=== PATIENT | female | born 1965 ===

== ENCOUNTER 2021-10-26 13:53 | Emergency (ER) | payer OTHER ==
--- OUTSIDE RECORDS SUMMARY | 2021-10-26 13:58 | XMS REPORT | Continuity of Care Document ---
:1965 Author Organization [facility] t Address [address] [place] [address] [address] [place] [address] Care Team Providers Name Role Phone Shawnee FLORES Primary Care Physician Unavailable SANDRA, Shawnee Attending Clinician Unavailable Cynthia SYKES Attending Clinician Unavailable Cynthia COLBERT Attending Clinician Unavailable Femi Gonzales PT Attending Clinician Unavailable Cynthia Colbert MD Attending Clinician MAR BEARDEN Attending Clinician Unavailable MAR BEARDEN Attending Clinician Unavailable ANDRIA Attending Clinician Unavailable Andria LOONEY Attending Clinician KINJAL Attending Clinician Unavailable Shawnee Flores MD Attending Clinician Radiology Attending Clinician Unavailable Pob, Lab Main Attending Clinician Unavailable Doctor Unassigned, Name Attending Clinician Unavailable Mar Bearden MD Attending Clinician KINJAL Admitting Clinician Unavailable Payers Payer Name Policy Type Policy Number Effective Date Expiration Date Susan HERNANDEZ [id number] 2021 PLUS 00:00:00 CLASSIC/VALUE MED[place] OF [place] [id number] 2015 00:00:00 MEDICARE PART A [id number] 1990 2021 \T\ B 00:00:00 00:00:00 [place] [id number] 1990 [employer] 00:00:00 [place] [id number] [place] Problems Condition Condition Condition Status Onset Resolution Last Treating Co mments Source Name Details Category Date Date Treatment Clinician Date Medicare Medicare Disease Active Unive rs annual annual 1-15 ity of wellness wellness 00:00: [place] visit, visit, 00 Medical subsequent subsequent Br anch Female Female Disease Active Univers stress stress 1-14 ity of incontinen [place] Tiredness Tiredness Disease Active 2019-09 Uni vers 1-13 ity of 00:00: [place] [facility] Insomnia, Insomnia, Disease Active 2019-09 Uni vers unspecifie unspecifie 1-13 it y of d type d type 00:00: [place] [facility] Chronic Chronic Disease Active 2019-09 Univers arthritis arthritis 0-13 ity of 00:00: [place] [facility] Menopausal Menopausal Disease Active 2019-09 U nivers syndrome syndrome 0-13 ity of 00:00: [place] [facility] Cerebral Cerebral Disease Active Unive rs palsy palsy 5-19 ity of 00:00: [place] [facility] Malaise Malaise Disease Active Univers and and 5-19 ity of fatigue fatigue 00:00: [place] [facility] Mixed Mixed Disease Active Univers anxiety anxiety 5-19 ity of and and 00:00: [place] depressive depressive 00 Me dical disorder disorder Branch Bipolar Bipolar Disease Active Univers disorder disorder 2-23 ity of 00:00: Medical Branch Severe Severe Disease Active Univers bipolar I bipolar I 3-19 [place] of disorder, disorder, [place] current or current or 00 [place] dical most most Branch recent recent episode episode mixed mixed Migraine Migraine Disease Active Overview: Un erorl 3-19 Formattin ity of 00:00: g of this [place] 00 note Medical might be Branch different from the original. 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 Infantile Infantile Disease Active Overview: Univers cerebral cerebral 3-14 Formattin ity of palsy palsy 00:00: g of this [place] 00 note Medical might be Branch different from the original. 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 Utility Urinary Urinary Disease Active Univers incontinen incontinen it y of ce ce [facility] Allergies, Adverse Reactions, Alerts Allergy Allergy Status Severity Reaction(s) Onset Inactive Treating Comm ents Source Name Type Date Date Clinician DIVALPRO DRUG Active Dizziness Unive rs EX INGREDI 10-06 ity of SODIUM 00:00: [place] 00 Medical Branch Divalpro Propensi Active Dizziness Room Uni vers ex ty to 10-06 spins in ity of Sodium adverse 00:00: circles [place] reaction 00 Medical s Branch LITHIUM DRUG Active Other-Cmnt Unive rs INGREDI 03-05 ity of 00:00: [place] 00 Medical Branch Bridgman Propensi Active Other - See Becomes U nivers ty to comments 03-05 wheel ity of adverse 00:00: chair [place] reaction 00 dependent Medic al s Branch VALPROIC DRUG Active Unknown-Cmnt Un errol ACID INGREDI - ity of 00:00: [place] 00 Medical Branch Valproic Propensi Active Unknown - Dizzy.. Un errol Acid ty to See comments -11 Unable to i ty of adverse 00:00: walk [place] reaction 00 Medical s Branch Social History Social Habit Start Date Stop Date Quantity Comments Source Exposure to Not sure [facility] SARS-CoV-2 (event) Medica l Branch Alcohol intake 2021-10-06 2021-10-06 0 /d [facility] 00:00:00 00:00:00 [facility] Tobacco use and 2016-03-05 2016-03-05 Never used [facility] exposure 00:00:00 00:00:00 [facility] Sex [birth year] [facility] 00:00:00 00:00:00 [facility] Smoking Status Start Date Stop Date Source Never smoker [facility] Medications Ordered Filled Start Stop Current Ordering Indication Dosage Frequency Signature Comments Components Source Medication Medication Date Date Medication? Clinician (SIG) Name Name ergocalcife Yes Take by Un errol rol, 10-06 mouth. ity of vitamin D2, 10:17: [place] (VITAMIN D 26 Medical ORAL) Branch amoxicillin Yes amoxicilli Univers 500 mg 10-06 n 500 mg ity of capsule 09:40: capsule [place] 47 Medical Branch guanFACINE Yes guanfacine U nivers ER 1 mg 1-24 ER 1 mg ity of tablet 09:40: tablet,ext [place] 47 ended Medical release 24 Branch hr hydroCHLORO Yes hydrochlor Univers thiazide 1-24 othiazide ity of 12.5 mg 09:40: 12.5 mg [place] tablet 47 tablet Medical Branch ibuprofen Yes ibuprofen Uni vers 800 mg 1-24 800 mg ity of tablet 09:40: tablet 47 Medical Branch asenapine Yes asenapine Uni vers maleate 10 1-24 10 mg ity of mg 09:40: sublingual [place] sublinguql 47 tablet Medical tablet Branch PARoxetine Yes paroxetine U nivers 30 mg 1-24 30 mg ity of tablet 09:40: tablet 47 Medical Branch PARoxetine Yes [id number] 40mg Take 2 Univers (PAXIL) 20 1-11 tablets by ity of mg tablet 00:00: mouth [place] 00 daily. Medical Branch baclofen 20 Yes [id number] TAKE 1 Univers mg tablet 1-11 TABLET BY ity o f 00:00: MOUTH [place] 00 THREE Medical TIMES A Branch DAY lisinopriL Yes [id number] 2.5mg Take 0.5 Univers 5 mg tablet 1-11 tablets by it y of 00:00: mouth [place] 00 daily. Medical Branch PARoxetine Yes [id number] 40mg Take 2 Univers (PAXIL) 20 1-11 tablets by ity of mg tablet 00:00: mouth [place] 00 daily. Medical Branch baclofen 20 Yes [id number] TAKE 1 Univers mg tablet 1-11 TABLET BY ity o f 00:00: MOUTH [place] 00 THREE Medical TIMES A Branch DAY lisinopriL Yes [id number] 2.5mg Take 0.5 Univers 5 mg tablet 1-11 tablets by it y of 00:00: mouth [place] 00 daily. Medical Branch PARoxetine Yes [id number] 40mg Take 2 Univers (PAXIL) 20 1-11 tablets by ity of mg tablet 00:00: mouth [place] 00 daily. Medical Branch baclofen 20 Yes [id number] TAKE 1 Univers mg tablet 1-11 TABLET BY ity o f 00:00: MOUTH [place] 00 THREE Medical TIMES A Branch DAY lisinopriL 2021-0 Yes [id number] 2.5mg Take 0.5 Univers 5 mg tablet 1-11 tablets by it y of 00:00: mouth [place] 00 daily. Medical Branch vitamin B Yes Take by Univ ers complex 7-08 mouth. ity of (B-COMPLEX 13:06: [place] ORAL) 43 Medical Branch TURMERIC Yes Take by Unive rs ORAL 7-08 mouth. ity of 13:06: [place] 43 Medical Branch vitamin B Yes Take by Univ ers complex 7-08 mouth. ity of (B-COMPLEX 13:06: [place] ORAL) 43 Medical Branch TURMERIC Yes Take by Unive rs ORAL 7-08 mouth. ity of 13:06: 43 Medical Branch vitamin B Yes Take by Univ ers complex 7-08 mouth. ity of (B-COMPLEX 13:06: [place] ORAL) 43 Medical Branch TURMERIC Yes Take by Unive rs ORAL 7-08 mouth. ity of 13:06: [place] 43 Medical Branch ketorolac 0 Yes [id number] 10mg Take 1 Un errol 10 mg 7-08 tablet by ity of tablet 00:00: mouth [place] 00 every 8 Medical (eight) Branch hours. proMETHazin 2020-0 Yes [id number] 25mg Take 1 Univers e 25 mg 7-08 tablet by ity of tablet 00:00: mouth [place] 00 every 6 Medical (six) Branch hours as needed for Nausea and Vomiting (N/V). ketorolac 2020-0 Yes [id number] 10mg Take 1 Un errol 10 mg 7-08 tablet by ity of tablet 00:00: mouth [place] 00 every 8 Medical (eight) Branch hours. proMETHazin 202-0 Yes [id number] 25mg Take 1 Univers e 25 mg 7-08 tablet by ity of tablet 00:00: mouth [place] 00 every 6 Medical (six) Branch hours as needed for Nausea and Vomiting (N/V). ketorolac 2020-0 Yes [id number] 10mg Take 1 Un errol 10 mg 7-08 tablet by ity of tablet 00:00: mouth [place] 00 every 8 Medical (eight) Branch hours. proMETHazin 2021-0 Yes [id number] 25mg Take 1 Univers e 25 mg 7-08 tablet by ity of tablet 00:00: mouth [place] 00 every 6 Medical (six) Branch hours as needed for Nausea and Vomiting (N/V). Asenapine [address] 5 mg Un errol (SAPHRIS, 6-15 under the ity o f BLACK 16:34: tongue at [facility],) 5 22 bedtime. Medic al mg Subl Branch Asenapine [address] 5 mg Un errol (SAPHRIS, 6-15 under the ity o f BLACK 16:34: tongue at [facility],) 5 22 bedtime. Medic al mg Subl Branch Asenapine [address] 5 mg Un errol (SAPHRIS, 6-15 under the ity o f BLACK 16:34: tongue at [facility],) 5 22 bedtime. Medic al mg Subl Branch hyoscyamine 0 Yes [id number] .125mg Take 1 Univers 0.125 mg 6-15 tablet by ity of tablet 00:00: mouth [place] 00 every 4 Medical (four) Branch hours as needed (max is 1.5mg in 24 hours). hyoscyamine 0 Yes [id number] .125mg Take 1 Univers 0.125 mg 6-15 tablet by ity of tablet 00:00: mouth [place] 00 every 4 Medical (four) Branch hours as needed (max is 1.5mg in 24 hours). hyoscyamine 0 Yes [id number] .125mg Take 1 Univers 0.125 mg 6-15 tablet by ity of tablet 00:00: mouth [place] 00 every 4 Medical (four) Branch hours as needed (max is 1.5mg in 24 hours). ergocalcife 0 Yes Take by Un errol rol, 2-24 mouth. ity of vitamin D2, 11:33: [place] (VITAMIN D 34 Medical ORAL) Branch ergocalcife 0 Yes Take by Un errol rol, 2-24 mouth. ity of vitamin D2, 11:33: [place] (VITAMIN D 34 Medical ORAL) Branch Immunizations Ordered Filled Immunization Date Status Comments [facility] e Immunization Name Name SARS-COV-2 COVID-19 2020-11-25 Com[facility] P[facility]ACC[facility] 00:00:00 [facility] SARS-COV-2 COVID-19 2020-11-25 Completed Unive rsity of PFIZER VACCINE 00:00:00 [facility] SARS-COV-2 COVID-19 2020-11-25 Completed Unive rsity of PFIZER VACCINE 00:00:00 [facility] SARS-COV-2 COVID-19 2020-11-04 Completed Unive rsity of PFIZER VACCINE 00:00:00 [facility] SARS-COV-2 COVID-19 2020-11-04 Completed Unive rsity of PFIZER VACCINE 00:00:00 [facility] SARS-COV-2 COVID-19 2020-11-04 Completed Unive rsity of PFIZER VACCINE 00:00:00 [facility] Influenza Virus 2020-06-27 Completed Universit y of Vaccine 00:00:00 [facility] Influenza Virus 2020-06-27 Completed Universit y of Vaccine 00:00:00 [facility] Influenza Virus 2020-06-27 Completed Universit y of Vaccine 00:00:00 [facility] Influenza Virus 2019-06-20 Completed Universit y of Vaccine 00:00:00 [facility] Influenza Virus 2019-06-20 Completed Universit y of Vaccine 00:00:00 [facility] Influenza Virus 2019-06-20 Completed Universit y of Vaccine 00:00:00 [facility] Zoster Vaccine 2019-04-11 Completed University of Recombinant 00:00:00 [facility] Zoster Vaccine 2019-04-11 Completed University of Recombinant 00:00:00 [facility] Zoster Vaccine 2019-04-11 Completed University of Recombinant 00:00:00 [facility] Zoster Vaccine 2019-01-09 Completed University of Recombinant 00:00:00 [facility] Zoster Vaccine 2019-01-09 Completed University of Recombinant 00:00:00 [facility] Zoster Vaccine 2019-01-09 Completed University of Recombinant 00:00:00 [facility] Influenza Virus 2018-06-30 Completed Universit y of Vaccine Quad IM 3+ 00:00:00 [facility] Influenza Virus 2018-06-30 Completed Universit y of Vaccine Quad IM 3+ 00:00:00 [facility] Influenza Virus 2018-06-30 Completed Universit y of Vaccine Quad IM 3+ 00:00:00 [facility] Vital Signs Vital Name Observation Time Observation Value Comments Source BMI 2021-09-23 22:23:00 23.56 kg/m2 [facility] Oxygen saturation in 2021-09-23 22:23:00 96 /min [facility] Arterial blood by [facility] [place] [facility] Pulse oximetry Branch Systolic blood 2021-09-23 22:23:00 135 mm[Hg] Univer sity of [facility] Diastolic blood 2021-09-23 22:23:00 95 mm[Hg] Unive rsity of [facility] Heart rate 2021-09-23 22:23:00 80 /min [facility] Body temperature 2021-09-23 22:23:00 36.78 [place] [facility] Respiratory rate 2021-09-23 22:23:00 18 /min [facility] Body height 2021-09-23 22:23:00 160 cm [facility] Body weight 2021-09-23 22:23:00 60.328 kg [facility] Procedures This patient has no known procedures. Encounters Start End Encounter Admission Attending Care Care Encounter Source Date/Time Date/Time Type Type Clinicians Facility Department ID 2021-12-30 2021-12-30 Outpatient [facility] [id number] Univers 10:40:00 10:40:00 PADMA [facility] 2021-11-07 2021-11-07 Outpatient R ONEL, [facility] [id number] Univers 10:00:00 10:00:00 INGRIS [facility] 2021-10-24 2021-10-24 Outpatient R [facility] [id number] Univers 08:45:00 08:45:00 [id number] [facility] 2021-10-24 2021-10-24 Outpatient R LALI, [facility] [id number] Univers 08:45:00 08:45:00 JIMBO [facility] 2021-10-21 2021-10-21 Outpatient R [facility] [id number] Univers 10:15:00 10:15:00 [id number] [facility] 2021-10-17 2021-10-17 Outpatient R [facility] [id number] Univers 08:45:00 08:45:00 [id number] ity [facility] 2021-10-14 2021-10-14 Outpatient R [facility] [id number] Univers 08:45:00 08:45:00 [id number] ity [facility] 2021-10-09 2021-10-09 Outpatient R ALLI [facility] [id number] Univers 09:30:00 10:56:53 JIMBO ity [facility] 2021-10-09 2021-10-09 Ancillary Kori [facility] [id number] Univers 09:30:00 10:56:53 Visit Jimbo Colbert [id number] [facility] [id number] [phone] [place] dical NAL 179 [facility] 2021-10-09 2021-10-09 Outpatient R [facility] [id number] Univers 09:30:00 09:30:00 ity [facility] 2021-10-09 2021-10-09 Outpatient R [facility] [id number] Univers 09:30:00 09:30:00 [id number] [facility] 2021-10-06 2021-10-06 Outpatient R REY BEARDEN [facility] [id number] Univers 11:00:00 11:00:00 REY BEARDEN [facility] 2021-10-03 2021-10-03 Outpatient R ANDRIA [facility] [id number] Univers 00:00:00 00:00:00 CURT [id number] [facility] 2021-09-23 2021-09-23 [facility] [id number] Univers 15:00:00 15:44:56 Visit Curt SUÁREZ [id number] i ty of [place] [id number] [place] [phone] N[place] dical NAL 044 [facility] 2021-01-15 2021-01-15 Outpatient ERICKSON_R [facility] [id number] [place] 12:17:00 12:17:00 028 [facility] 2020-09-27 2020-09-27 [facility] [id number] 08:15:52 08:30:52 ne Visit Curt Suárez [id number] [place] [id number] Professio [phone] [facility] 044 [facility] 2020-08-02 2020-08-02 Telephone [facility] [id number] 00:00:00 00:00:00 Padma Mallory Rasheeda [id number] [place] [id number] Professio [phone] [facility] 231 [facility] 2020-08-01 2020-08-01 Hospital Radiology [facility] [id number] 09:02:37 23:59:00 Encounter Rasheeda [id number] [place] [id number] [place] [id number] 2020-08-01 2020-08-01 International Logistics Coordinator Isaac [facility] [id number] 08:26:52 08:41:52 Visit Lab Main Rasheeda [id number] [place] [id number] Professio [phone] [facility] 353 [facility] 2020-07-31 2020-07-31 International Logistics Coordinator Isaac [facility] [id number] 13:04:45 13:19:45 Visit Lab Main Rasheeda [id number] [place] [id number] Professio [phone] [address] 2020-07-31 2020-07-31 Orders Doctor PAT 1.2.840.114 [id number] 00:00:00 00:00:00 Only Unassigned, NATALIA [id number] [facility] [id number] [id number] 2020-07-26 2020-07-26 Telemedici [facility] [id number] 08:00:03 08:20:03 ne Visit Curt Suárez [id number] [place] [id number] Professio [phone] nal 044 [facility] 2020-05-28 2020-05-28 Telephone [place] [id number] 00:00:00 00:00:00 Rey Suárez [id number] [place] [id number] Professio [phone] [facility] 092 [facility] 2020-05-24 2020-05-24 Office [place] [id number] 10:39:30 11:22:12 Visit Rey Suárez [id number] [place] [id number] Professio [phone] [address] Results This patient has no known results.
[2021-10-26] MEDS ORDERED: ONDANSETRON 4 MG/2 ML VIAL ONE (15:19)
[2021-10-26] MEDS ORDERED: MORPHINE 4 MG/ML SYR ONE (15:19)
--- NOTE | 2021-10-26 17:21 | RAD REPORT ---
EXAM DESCRIPTION: CT - CTHCSPWOC - 10/26/2021 4:33 pm CLINICAL HISTORY: PAIN COMPARISON: <Comparisons> TECHNIQUE: Axial 5 mm thick images of the head were obtained. Axial 2 mm thick images of the cervic al spine were obtained with sagittal and coronal reconstruction images generated and reviewed. All CT scans are performed using dose optimization technique as appropriate and may include automated exposure control or mA/KV adjustment according to patient size. FINDINGS: No intracranial hemorrhage, mass, edema or acute intracranial finding. No suspicion for ac deanne infarction. No extra-axial fluid collections. Mastoid air cells and paranasal sinuses are clear. No globe or orbit abnormality seen. Cervical body height and alignment are normal. Significant disc space narrowing present at C4-5 with more mild disc space narrowing C3-4, C5-6 and C6-7. Uncovertebral joint and facet joint degenerative changes are present. No significant degree of foraminal stenosis seen. No fracture or acute bony abno rmality. Central canal detail is inherently limited. No paraspinal mass or hematoma. IMPRESSION: Negative CT head examination for acute or significant finding. Negative CT cervical spine examination for acute or significant finding.
--- NOTE | 2021-10-26 17:42 | ER ---
Nurse's Notes [facility] Name: Jahaira Alvarez Age: 56 yrs Sex: Female : 1965 Arrival Date: 10/26/2021 Time: 13:57 Bed 26 Private MD: Diagnosis: Headache-Chronic;Neck pain: Chronic Presentation: 10/26 14:19 Chief complaint: Patient states: APPLE since my fall in August, started vomiting and not jl7 sure if it's from the APPLE. Coronavirus screen: nausea, vomiting. Ebola Screen: No symptoms or risks identified at this time. Initial Sepsis Screen: Does the patient meet any 2 criteria? No. Patient's initial sepsis screen is negative. Does the patient have a suspected source of infection? No. Patient's initial sepsis screen is negative. Risk Assessment: Do you want to hurt yourself or someone else? Patient reports no desire to harm self or others. Onset of symptoms is unknown. 14:19 Method Of Arrival: Wheelchair jl7 14:19 Acuity: NORM 3 jl7 Triage Assessment: 14:21 General: Appears in no apparent distress. uncomfortable, Behavior is calm, cooperative, jl7 appropriate for age. Pain: Complains of pain in APPLE Pain currently is 10 out of 10 on a pain scale. 15:11 General: Appears in no apparent distress. uncomfortable, slender, well groomed. Pain: lr4 Complains of pain in face and scalp Pain currently is 10 out of 10 on a pain scale. Pain began off and on for months, worse in last few days. Neuro: No deficits noted. Cardiovascular: No deficits noted. Respiratory: No deficits noted. 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 - Social history:: Smoking status: Patient denies any tobacco usage or history of. Screenin:02 Abuse screen: Denies threats or abuse. lr4 18:03 Nutritional screening: No deficits noted. lr4 18:03 Tuberculosis screening: No symptoms or risk factors identified. lr4 18:03 Fall Risk Fall in past 12 months (25 points). Secondary diagnosis (15 points) IV access lr4 (20 points). Ambulatory Aid- None/Bed Rest/Nurse Assist (0 pts). Gait- Weak (10 pts.). Mental Status- Oriented to own ability (0 pts). Total Smith Fall Scale indicates High Risk Score (45 or more points). Frequent Obs/Assessments Occuring Family Present and informed to notify staff if the need to leave the bedside. Assessment: 18:02 Reassessment: Pt departed ed via wheelchair with all personal effects, pt in nad, vss lr4 Patient states symptoms have improved. Vital Signs: 14:19 BP 118 / 97; Pulse 91; Resp 17; Temp 97.9; Pulse Ox 100% ; Pain 10/10; jl7 15:50 BP 138 / 103; Pulse 89; Resp 18; Pulse Ox 97% ; Pain 7/10; lr4 18:01 BP 147 / 99; Pulse 90; Resp 18; Pulse Ox 98% ; lr4 18:04 Pain 7/10; lr4 18:04 Pain 7/10; lr4 ED Course: 13:57 Patient arrived in ED. jj6 14:08 Eliel Cason MD is Attending Physician. kdr 14:21 Triage completed. jl7 14:21 Arm band placed on right wrist. jl7 15:27 Inserted saline lock: 20 gauge in right forearm, using aseptic technique. lr4 16:33 CT Head C Spine In Process Unspecified. EDMS 17:40 Rey Watson MD is Referral Physician. kdr 18:02 No provider procedures requiring assistance completed. lr4 18:02 IV discontinued. lr4 18:03 Patient has correct armband on for positive identification. Bed in low position. lr4 Administered Medications: 15:27 Drug: morphine 4 mg Route: IVP; Site: right forearm; lr4 18:04 Follow up: Pain 7/10 Adult; Response: No adverse reaction; RASS: Alert and Calm (0) lr4 15:27 Drug: Zofran (Ondansetron) 4 mg Route: IVP; Site: right forearm; lr4 18:04 Follow up: Response: Nausea is decreased lr4 17:50 Drug: Ketorolac 15 mg Route: IVP; Site: right forearm; lr4 18:04 Follow up: Pain 7/10 Adult lr4 17:50 Drug: Phenergan (promethazine) 12.5 mg Route: IVP; Site: right forearm; lr4 18:05 Follow up: Response: Nausea is decreased; Vomiting decreased lr4 Outcome: 17:41 Discharge ordered by . kdr 18:02 Condition: stable lr4 18:02 Discharged to home via wheelchair, with family. lr4 18:03 Discharge instructions given to patient, family. lr4 18:05 Patient left the ED. lr4 Signatures: Dispatcher [employer] EDMS Eliel Cason MD MD kdr Leal, Jahala RN RN jl7 Shanthi Villaltaj6 Anjelica Vargas RN RN lr4
--- NOTE | 2021-10-26 17:42 | EDPHYS ---
Physician Documentation [facility] Name: Jahaira Alvarez Age: 56 yrs Sex: Female : 1965 Arrival Date: 10/26/2021 Time: 13:57 Bed 26 Private MD: ED Physician Eliel Cason HPI: 10/26 19:21 This 56 yrs old Female presents to ER via Wheelchair with complaints of Fall Injury, kdr Abdominal Pain, Nausea/Vomiting, Headache. 19:21 The patient complains of pain to the top of head, right faith, left faith, left kdr frontal area and left side of the back of head. The patient describes the headache as aching, constant, unrelenting. Onset: The symptoms/episode began/occurred Had this headache since August when she fell hitting her head on a table. She has had multiple studies including CTs and MRIs never found any particular causative agent or problem. Associated signs and symptoms: Pertinent positives: nausea, vomiting, Neck pain. Severity of symptoms: At its worst the pain was moderate, severe, incapacitating, just prior to arrival, in the emergency department the pain is unchanged. Headache History: Other This is been ongoing unrelenting since August and she is being followed by Dr. Bearden. She has a another MRI scheduled in the next few weeks. The symptoms are alleviated by nothing. the symptoms are aggravated by nothing. The patient has experienced similar episodes in the past, chronically. The patient has been recently seen by a physician: Dr. Watson. 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 - Social history:: Smoking status: Patient denies any tobacco usage or history of. ROS: 19:21 Constitutional: Negative for fever, chills, and weight loss, Eyes: Negative for injury, kdr pain, redness, and discharge, Neck: Negative for injury, pain, and swelling, Cardiovascular: Negative for chest pain, palpitations, and edema, Respiratory: Negative for shortness of breath, cough, wheezing, and pleuritic chest pain, Abdomen/GI: Negative for abdominal pain, nausea, vomiting, diarrhea, and constipation, Back: Negative for injury and pain, : Negative for injury, bleeding, discharge, and swelling, MS/Extremity: Negative for injury and deformity, Skin: Negative for injury, rash, and discoloration, Psych: Negative for depression, anxiety, suicide ideation, homicidal ideation, and hallucinations, Allergy/Immunology: Negative for hives, rash, and allergies, Endocrine: Negative for neck swelling, polydipsia, polyuria, polyphagia, and marked weight changes, Hematologic/Lymphatic: Negative for swollen nodes, abnormal bleeding, and unusual bruising. 19:21 Neuro: Positive for headache, Negative for altered mental status, dizziness, gait disturbance, hearing loss, loss of consciousness, numbness, seizure activity, speech changes, syncope, near syncope, tingling, tinnitus, tremor, visual changes, weakness. Exam: 19:21 Constitutional: This is a well developed, well nourished patient who is awake, alert, kdr and in mild to moderate distress. She lays with her head covered. She denies any new facet to the headache or neck pain Head/Face: Normocephalic, atraumatic. Eyes: Pupils equal round and reactive to light, extra-ocular motions intact. Lids and lashes normal. Conjunctiva and sclera are non-icteric and not injected. Cornea within normal limits. Periorbital areas with no swelling, redness, or edema. Neck: Trachea midline, no thyromegaly or masses palpated, and no cervical lymphadenopathy. Supple, full range of motion without nuchal rigidity, or vertebral point tenderness. No Meningismus. Chest/axilla: Normal chest wall appearance and motion. Nontender with no deformity. No lesions are appreciated. Cardiovascular: Regular rate and rhythm with a normal S1 and S2. No gallops, murmurs, or rubs. Normal PMI, no JVD. No pulse deficits. Respiratory: Lungs have equal breath sounds bilaterally, clear to auscultation and percussion. No rales, rhonchi or wheezes noted. No increased work of breathing, no retractions or nasal flaring. Abdomen/GI: Soft, non-tender, with normal bowel sounds. No distension or tympany. No guarding or rebound. No evidence of tenderness throughout. Back: No spinal tenderness. No costovertebral tenderness. Full range of motion. Skin: Warm, dry with normal turgor. Normal color with no rashes, no lesions, and no evidence of cellulitis. MS/ Extremity: Pulses equal, no cyanosis. Neurovascular intact. Full, normal range of motion. Neuro: Awake and alert, GCS 15, oriented to person, place, time, and situation. Cranial nerves II-XII grossly intact. Motor strength 5/5 in all extremities. Sensory grossly intact. Cerebellar exam normal. Normal gait. Psych: Awake, alert, with orientation to person, place and time. Behavior, mood, and affect are within normal limits. Vital Signs: 14:19 BP 118 / 97; Pulse 91; Resp 17; Temp 97.9; Pulse Ox 100% ; Pain 10/10; jl7 15:50 BP 138 / 103; Pulse 89; Resp 18; Pulse Ox 97% ; Pain 7/10; lr4 18:01 BP 147 / 99; Pulse 90; Resp 18; Pulse Ox 98% ; lr4 18:04 Pain 7/10; lr4 18:04 Pain 7/10; lr4 MDM: 17:41 Patient medically screened. kdr 19:21 Data reviewed: vital signs, nurses notes, lab test result(s), radiologic studies. kdr Counseling: I had a detailed discussion with the patient and/or guardian regarding: the historical points, exam findings, and any diagnostic results supporting the discharge/admit diagnosis, lab results, radiology results, the need for outpatient follow up. ED course: I spoke with Dr. Bearden about the patient's presenting symptoms and the plan for follow-up. Indicated he would have his office contact the patient and see if they can move the scheduled MRIs sooner rather than later. 10/26 15:13 Order name: CT Head C Spine; Complete Time: 17:28 kdr Administered Medications: 15:27 Drug: morphine 4 mg Route: IVP; Site: right forearm; lr4 18:04 Follow up: Pain 7/10 Adult; Response: No adverse reaction; RASS: Alert and Calm (0) lr4 15:27 Drug: Zofran (Ondansetron) 4 mg Route: IVP; Site: right forearm; lr4 18:04 Follow up: Response: Nausea is decreased lr4 17:50 Drug: Ketorolac 15 mg Route: IVP; Site: right forearm; lr4 18:04 Follow up: Pain 03/22 Adult lr4 17:50 Drug: Phenergan (promethazine) 12.5 mg Route: IVP; Site: right forearm; lr4 18:05 Follow up: Response: Nausea is decreased; Vomiting decreased lr4 Disposition Summary: 10/26/21 17:41 Discharge Ordered Location: Home kdr Problem: an ongoing problem kdr Symptoms: have improved kdr Condition: Stable kdr Diagnosis - Headache - Chronic kdr - Neck pain: Chronic kdr Followup: kdr - With: Rey Watson MD - When: 2 - 3 days - Reason: If symptoms return, Further diagnostic work-up, Recheck today's complaints, Continuance of care, Re-evaluation by your physician Discharge Instructions: - Discharge Summary Sheet kdr - General Headache Without Cause kdr Forms: - Medication Reconciliation Form kdr - Thank You Letter kdr Prescriptions: - ketorolac 10 mg Oral tablet - take 1 tablet by ORAL route every 6 hours As needed not to exceed 40 mg in kdr 24hrs; 16 tablet; Refills: 0, Product Selection Permitted - promethazine 25 mg Oral Tablet - take 1 tablet by ORAL route every 6 hours As needed; 20 tablet; Refills: 0, kdr Product Selection Permitted 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 EDMS EDMS 16:18 16:13 Head Brain Wo Cont ordered. EDMS EDMS 19:24 19:21 Constitutional: This is a well developed, well nourished patient who is awake, kdr alert, and in no acute distress. Head/Face: Normocephalic, atraumatic. Eyes: Pupils equal round and reactive to light, extra-ocular motions intact. Lids and lashes normal. Conjunctiva and sclera are non-icteric and not injected. Cornea within normal limits. Periorbital areas with no swelling, redness, or edema. Neck: Trachea midline, no thyromegaly or masses palpated, and no cervical lymphadenopathy. Supple, full range of motion without nuchal rigidity, or vertebral point tenderness. No Meningismus. Chest/axilla: Normal chest wall appearance and motion. Nontender with no deformity. No lesions are appreciated. Cardiovascular: Regular rate and rhythm with a normal S1 and S2. No gallops, murmurs, or rubs. Normal PMI, no JVD. No pulse deficits. Respiratory: Lungs have equal breath sounds bilaterally, clear to auscultation and percussion. No rales, rhonchi or wheezes noted. No increased work of breathing, no retractions or nasal flaring. Abdomen/GI: Soft, non-tender, with normal bowel sounds. No distension or tympany. No guarding or rebound. No evidence of tenderness throughout. Back: No spinal tenderness. No costovertebral tenderness. Full range of motion. Skin: Warm, dry with normal turgor. Normal color with no rashes, no lesions, and no evidence of cellulitis. MS/ Extremity: Pulses equal, no cyanosis. Neurovascular intact. Full, normal range of motion. Neuro: Awake and alert, GCS 15, oriented to person, place, time, and situation. Cranial nerves II-XII grossly intact. Motor strength 5/5 in all extremities. Sensory grossly intact. Cerebellar exam normal. Normal gait. Psych: Awake, alert, with orientation to person, place and time. Behavior, mood, and affect are within normal limits. kdr
[2021-10-26] MEDS ORDERED: KETOROLAC 30 MG/ML INJ ONE (17:45)
[2021-10-26] MEDS ORDERED: PROMETHAZINE INJ 25 MG/ML AMP ONE (17:45)
[2021-10-26 18:26] VITALS: TEMP 97.9
[2021-10-26 18:29] VITALS: BP 147/99; O2SAT 98
== END 2021-10-26 18:05 | disposition home or self-care (01) ==
LOC: ER 13:53
DX: R51.9 Headache, unspecified (principal); M54.2 Cervicalgia; F31.9 Bipolar disorder, unspecified; G80.9 Cerebral palsy, unspecified
CPT/HCPCS: 70450; 72125; 96375; 96374; 99283; J2550; J2405